=== PATIENT | female | born 1960 | race Caucasian/White ===

== ENCOUNTER 2022-09-04 11:00 | Day surgery (SDC) | payer OTHER ==
[~2022-09-04] VITALS: Ht 162.6 cm; Wt 77.1 kg
[2022-09-04] MEDS ORDERED: PROPOFOL 200MG/ 20ML VIAL (DIPRIVAN) IV ONE (12:46)
[2022-09-04] MEDS ORDERED: LIDOCAINE 2%, 20 ML MDV ONE (12:46)
[2022-09-04 17:05] VITALS: BP_SYST 147; PULSE 59; RESP 16; TEMP 97.1; O2SAT 100
== END 2022-09-04 14:25 | disposition home or self-care (01) ==
LOC: SDS 11:00 → SMU 11:03 → SDS 14:25
PROVIDERS: ATTEND Surgery
DX: R19.5 Other fecal abnormalities (principal); K57.30 Diverticulosis of large intestine without perforation or abscess without bleeding; K64.8 Other hemorrhoids; I10 Essential (primary) hypertension; E78.5 Hyperlipidemia, unspecified; F03.90 Unspecified dementia, unspecified severity, without behavioral disturbance, psychotic disturbance, mood disturbance, and anxiety; Z86.73 Personal history of transient ischemic attack (TIA), and cerebral infarction without residual deficits; Z79.899 Other long term (current) drug therapy
CPT/HCPCS: 45378; 93005; G0378; J2001; J2704